=== PATIENT | male | born 1980 | race American Indian/Alaskan Native ===

== ENCOUNTER 2019-03-01 06:13 | Day surgery (SDC) | payer OTHER ==
[2019-02-27 17:43] VITALS: BMI 33.3
[2019-03-01] MEDS ORDERED: BUPIVACAINE HCL/PF 0.5% (5MG/ML) 10 ML VIAL ONE (07:15)
[2019-03-01] MEDS ORDERED: PROPOFOL 20 ML ONE ×2 (08:01→08:25)
--- NOTE | 2019-03-01 08:01 | HP ---
[facility] - Chief Complaint Chief Complaint: strerilization and excess penile skin History of Present Illness: 38 year old male desires vasectomy. In addition, he had a circumcision as a child but it had healed irregularly. He desires a circumcision revision. History Source: Patient Limitations to Obtaining History: No Limitations - Past Medical History Allergies/Adverse Reactions: Allergies Allergy/AdvReac Type Severity Reaction Status Date / Time ampicillin Allergy "hives" Verified 03/01/19 06:48 erythromycin base Allergy "hives" Verified 03/01/19 06:48 lincomycin Allergy "hives" Verified 03/01/19 06:48 shellfish derived Allergy "hives" Verified 03/01/19 06:48 PRECISION FARMING COORDINATOR: No: Alzheimer's, CVA, Dementia, Migraine, Multiple Sclerosis, Peripheral Neuropathy, Parkinson's, Seizure, Syncope, TIA, Vertigo, Other Cardiovascular: No: AFIB, Aneurysm, Aortic Insufficiency, Aortic Stenosis, CAD, CHF, Deep Vein Thrombosis, HTN, Hyperlipdemia, NE, Mitral Insufficiency, Mitral Stenosis, Murmur, Pulmonary Hypertension, Other Pulmonary: No: Asthma, Bronchitis, Cancer, COPD, O2 Dependent, Pneumonia, Previously Intubated, Pulmonary Embolus, Pulmonary Fibrosis, Sleep Apnea, Other Gastrointestinal: No: Ascites, Cancer, Constipation, Crohn's Disease, Diverticulitis, Diverticulosis, Esophageal Varices, Gastritis, GERD, GI Bleed, Hemorrhoids, Hiatal Hernia, Inflamatory Bowel Disease, Irritable Bowel Disease, Pancreatitis, Peptic Ulcer Disease, Ulcerative Colitis, Other Renal/: Yes: Other Heme/Onc: No: Anemia, B12 Deficiency, Bleeding Disorder, Cancer, Current Chemotherapy, Current Radiation Therapy, Hemochromatosis, Hypercoaguable State, Myeloproliferative Synd, Sickle Cell Disease, Sickle Cell Trait, Thrombocytopenia, Other Infectious Disease: No: AIDS, C-Diff, Herpes Zoster, HIV, MRSA, STD's, Tuberculosis, VREF, Other Musculoskeletal: No: Bursitis, Chronic low back pain, Hemiparesis, Hemiplegia, Osteoarthritis, Paraplegia, Other Rheumatology: No: Fibromyalgia, Gout, Lupus, Rheumatoid Arthritis, Sarcoidosis, Vasculitis, Other - Current Medications Current Medications: Home Medications Medication Instructions Recorded NK [No Known Home Medication] 02/27/19 [facility] Physical Exam - Physical Examination Vital Signs: Vital Signs Period Temp Pulse Resp BP Sys/Burgess Pulse Ox Last 24 Hr 70 16 117/82 98 General Appearance: Well Nourished, Well Developed, Alert & Oriented x3 ENT: Clear, No Discharge, No masses Lung: Clear to auscultation Heart: Regular rate & rhythm, Normal S1, Normal S2 Abdomen: Soft, No tenderness, No CVA Extremities: No edema, No tenderness/swelling Pelvic Exam: Other External Genitalia (excess penile skin ventrally) Neurological: Intact, Alert, Oriented Satellite Impression/Plan - Impression/Plan Impression: desired sterilization. circumcision revision Operative Procedure: vasectomy, circumcision revision Date to be Performed: 03/01/19
[2019-03-01] MEDS ORDERED: MIDAZOLAM HCL 2 MG/2 ML SINGLE DOSE VIAL ONE (08:02)
[2019-03-01] MEDS ORDERED: ACETAMINOPHEN 1000 MG/100 ML VIAL (NON FORMULARY) IVPB ONE (08:02)
[2019-03-01] MEDS ORDERED: LIDOCAINE HCL 1%, 10 MG/ML (20ML VIAL) ONE (08:05)
[2019-03-01] MEDS ORDERED: DEXTROSE 5%-0.45% SALINE 1,000 ML IV SCH (08:15)
[2019-03-01] MEDS ORDERED: IBUPROFEN 800 MG/8 ML IJ IVPB SCH (08:15)
[2019-03-01] MEDS ORDERED: LIDOCAINE HCL 1%, 10 MG/ML (20ML VIAL) NR ONE ×2 (08:25)
[2019-03-01] MEDS ORDERED: BUPIVACAINE HCL/PF 0.5% (5MG/ML) 10 ML VIAL NR ONE ×2 (08:25)
[2019-03-01] MEDS ORDERED: BACITRACIN 15 GM TUBE TOPICAL OINTMENT TP ONE (08:41)
[2019-03-01] MEDS ORDERED: KETOROLAC TROMETHAMINE 30 MG/1 ML VIAL ONE (08:47)
[2019-03-01] MEDS ORDERED: DEXAMETHASONE SOD PHOSPHATE 4 MG/1 ML VIAL ONE (08:47)
[2019-03-01] MEDS ORDERED: DESFLURANE GAS 240 ML BOTTLE IH ONE (08:50)
[2019-03-01] MEDS ORDERED: ACETAMINOPHEN INJECTION 100 ML IVPB ONE (09:20)
[2019-03-01 09:36] VITALS: TEMP 97.9
[2019-03-01 14:07] VITALS: BP 120/80; PULSE 71
--- NOTE | 2019-03-06 17:10 | PATH ---
Surgical Pathology Report Patient Name: RANJIT JURADO [facility]. Rec. #: [id number] /Age/Gender: 1980 (Age: 38) / M Account: [id number] Location: [facility] Taken: 03/01/2019 Received: 03/01/2019 Reported: 03/06/2019 Physicians: Asael Lee M.D. Specimen(s) Received A: FORESKIN B: LEFT VAS DEFERENS,STERILIZATION C: RIGHT VAS DEFERENS,STERILIZATION Clinical History Phimosis, sterilization Final Diagnosis A. FORESKIN, EXCISION: SEGMENT OF FORESKIN WITH FOCAL MILD NONSPECIFIC CHRONIC INFLAMMATION. B. LEFT VAS DEFERENS, RESECTION: COMPLETE CROSS SECTION OF THE VAS DEFERENS LUMEN IDENTIFIED. C. RIGHT VAS DEFERENS, RESECTION: COMPLETE CROSS SECTION OF THE VAS DEFERENS LUMEN IDENTIFIED. Electronically Signed Vickie Hernandez M.D. Gross Description A. Received in formalin labeled "foreskin," is a 3.7 x 2.0 x 0.3 cm brown, wrinkled portion of skin, consistent with foreskin. No discrete lesion is identified. Canine Service Instructor Trainer sections are submitted in one cassette. B. Received in formalin labeled "left vas deferens," is a 0.6 cm in length tubular structure, consistent with a portion of vas deferens. The specimen is bisected and entirely submitted in one cassette. C. Received in formalin labeled "right vas deferens," is a 0.6 cm in length tubular structure, consistent with a portion of vas deferens. The specimen is bisected and entirely submitted in one cassette. 03/04/2019 [facility]03/04/2019
--- NOTE | 2019-03-20 10:07 | OP ---
DATE OF OPERATION: 03/01/2019 PREOPERATIVE DIAGNOSIS: Phimosis and desires sterilization. POSTOPERATIVE DIAGNOSIS: Phimosis and desires sterilization. PROCEDURE: Circumcision revision and bilateral vasectomy. SURGEON: Asael Lee MD ESTIMATED BLOOD LOSS: Minimal. SPECIMEN: Portion of foreskin and right and left segment of vas deferens. ANESTHESIA: General with local. PREOPERATIVE INDICATIONS: The patient is a 38-year-old male who was circumcised at ; however, a large area of skin was left on the ventral aspect. He finds this to be uncomfortable and would like to have the circumcision completed. He is also here for a vasectomy. DESCRIPTION OF PROCEDURE: The patient was brought to the OR, placed on the table in a supine position, given general anesthesia. The groin was prepped and draped sterilely. IV antibiotics were given, timeout was performed. Bilateral vasectomies were performed. A no scalpel technique was used. On the right side the vas deferens was grasped with my fingers and isolated from the rest of the cord. Lidocaine was injected into the skin over the vas deferens. Using a sharp mosquito clamp, the skin was pierced, and the vas deferens was then grasped with the ring forceps. This was brought out of the incision and skeletonized. A portion of the vas deferens was excised, free ends were cauterized and oversewn with 3-0 Vicryl suture. This was also done on the left side in exactly the same way. The vas deferens was grasped with the fingers and isolated from the rest of the cord. Lidocaine was injected into the skin. Skin was pierced with a piercing mosquito forceps. A ring clamp was used to grasp the vas deferens and skeletonized, and a portion of the vas deferens was excised. The free ends were cauterized and oversewn with 3-0 Vicryl suture. Good hemostasis was achieved. The circumcision revision was then performed. Excess skin was seen along the ventral aspect of the penis and distal shaft. This skin was then excised, and the skin was reapposed using 4-0 chromic suture in interrupted fashion. This wound was then dressed with Vaseline gauze, sterile gauze, and Coban. Patient was then woken up. Jaden [id number]
== END 2019-03-01 11:35 | disposition home or self-care (01) ==
LOC: JASU-SURG 06:13 → EDSEX 08:00 → JASU-SURG 11:35
PROVIDERS: ATTEND Urology
PROC: 0VTTXZZ Resection of Prepuce, External Approach (ICD-10-PCS; principal; 2019-03-01 08:00)
PROC: 0VTQ0ZZ Resection of Bilateral Vas Deferens, Open Approach (ICD-10-PCS; 2019-03-01 08:00)
DX: N47.1 Phimosis (principal); Z30.2 Encounter for sterilization
CPT/HCPCS: 88302-TC; 88304-TC; 94760; J0131